=== PATIENT | female | born 1990 | race Caucasian/White ===

== ENCOUNTER 2025-01-28 15:27 | Outpatient (CLI) | payer SELFPAY ==
--- OUTSIDE RECORDS SUMMARY | 2024-04-29 18:00 | XMS_ITS | Continuity of Care Document ---
Author Organization [facility]. If a dditional information is needed, contact Health Information Management at [phone] Address [address] [place] [address] Phone Care Team Providers Care Warehouse Operations Associate Name Role Phone Unavailable Unavailable Unavailable Unavailable Unavailable Unavailable Unavailable Unavailable Unavailable Unavailable Unavailable Unavailable Unavailable Unavailable Unavailable Note Vidhya BushUxztf-25-Bif-2024 [place], [place] [address]Phone: Bvmptohl NotePatient Name: MICK ZIEGLEROB: 1990 Age: 33 Sex: FAcct: [id number] MR#: [id number] Status: DIS IN Patient Location: [facility].233-AOrdering Physician:Date of Admission:04/28/24 DATE OF PROCEDURE: 04/28/2024 PREDELIVERY DIAGNOSES: 1. Intrauterine at 41.1 weeks gestation. 2. Past dates . 3. 6 cm lower uterine segment fibroid. POSTDELIVERY DIAGNOSES: 1. Intrauterine at 41.1 weeks gestation. 2. Past dates . 3. 6 cm lower uterine segment fibroid. 4. Nuchal cord x1. PROCEDURE PERFORMED: Spontaneous vaginal delivery via Pitocin induction. DELIVERING PROVIDER: Rachelle Kee, Certified Nurse Personal Coach. BACKUP PROVIDER: Dr. Elizabeth Cuevas. : Infant was a viable female, name Danita Machado. Time of is 2141 on 04/28/2024. Weight is currently pending. Apgars 8 and 9. ANESTHESIA: Epidural. LACERATIONS: Lacerations sustained was a second-degree vaginal laceration, repaired with a 3- 0 Vicryl suture. She also had some small first-degree abrasions at approximately 8 o'clock and 2 o'clock of the hymenal ring, which were reapproximated and made hemostatic with a single stitch of a 3-0 chromic suture. ESTIMATED BLOOD LOSS: 200 mL. PLACENTA: Spontaneously delivered with 3-vessel cord noted. SPECIMENS: Cord blood. COMPLICATIONS: None. DELIVERY COURSE: The patient is a 33-year-old, pleasant, 1, para 1,Patient Name: JAVAN ZIEGLER Acct: [id number] Unit: [id number] Page 1 who presented to Labor and Delivery this morning to begin her induction, as she was seen in the office yesterday and given her status is postdates, was recommended to proceed with induction. She exhibited a category 1 tracing through the majority of her labor. She started at around 2 cm and was remained on Pitocin throughout the day. Around 5:30 p.m., she was around 3 cm, starting to contract somewhat more painfully, and then upon my exam around 7:30 this evening, she was found to be completely dilated. She had a bulging bag of water, which was ruptured via artificial rupture of membranes, yielded clear fluid. From that point, she requested an epidural for the benefit of pain relief. She labored down after that for approximately 30 minutes. At that point in time, she was placed in dorsal lithotomy position, prepped and draped, and prepared for delivery. She pushed for approximately 55 minutes. She eventually delivered the head atraumatically in the direct OA position, rotating to the POLO position. The 's body and shoulder then easily followed. Nuchal cord x1 was not able to be reduced prior to delivery of the body and was delivered immediately after the body was delivered. The infant was then handed off to the maternal abdomen and vigorous cry was noted. Cord was doubly clamped and cut after delay of approximately 45 seconds. Cord blood was obtained. Placenta was delivered via Schultze mechanism, intact with trailing membranes. Careful inspection of cervix, vagina, and perineum revealed the aforementioned lacerations, which were repaired in standard fashion. Good catholic and normal maternal anatomy was appreciated post- delivery. Both mom and baby are doing well at this time. Dictated by Rachelle Kee APRN for Elizabeth Cuevas MD JOB: [id number]<Electronically signed by PUSHPA Kee>04/29/24 1304<Electronically signed by Elizabeth Cuevas MD>05/04/24 1617Dictated By: Rachelle Kee APRN DictatedDate/Time: 04/28/242221Transcribed By: Superior Lowe InterfaceTranscribed Date/Time: 04/29/24 0255Technologist: Report ID: [id number] To:Patient Name: JAVAN ZIEGLER Acct: [id number] Unit: [id number] Page 2 [place] Jamari [address] [place], [place] [address]Phone: Isnzmkd and PhysicalPatient Name: MICK ZIEGLEROB: 1990 Age: 33 Sex: FAcct: [id number] MR#: [id number] Status: DIS IN Patient Location: [facility].[address] [place] [address] Physician:Date of Admission:04/28/24 ADM. DATE: 04/28/2024 ADMITTING DIAGNOSES: 1. Intrauterine at 41.1 weeks gestation. 2. Postdates. 3. History of 6 cm lower uterine segment fibroid. HISTORY: The patient is a 33-year-old , white, 1, para 0, with an intrauterine at 41.1 weeks gestation on the date of her scheduled induction of labor. She has had a relatively benign course at [facility] with exception of following a lower uterine segment anterior fibroid of about 6 cm in size. This has been followed in conjunction with [facility]. The patient is now postdates and I have recommended that we proceed with induction of labor for interest. They declined coming in tonight for induction and wished to proceed with induction tomorrow morning. She understands a small chance of failed induction, which could result in section. She understands that this risk may be increased somewhat due to the location of this uterine fibroid as well as on today's ultrasound baby appears to be in the OP position. PAST MEDICAL HISTORY: Negative. PAST SURGICAL HISTORY: Negative. ALLERGIES: NO KNOWN DRUG ALLERGIES. MEDICATIONS: None. SOCIAL HISTORY: Negative for tobacco, ethanol, or IV drug abuse. She has been almost 2 years. FAMILY MEDICAL HISTORY: Negative for carcinoma or any type of blood disorders. OBSTETRICAL AND GYNECOLOGICAL HISTORY: She is 1, para 0. PHYSICAL EXAMINATION: GENERAL: This is a 199-pound, 5 feet 5-inch tall (BMI of 33.13) pleasant white female, in nonacute distress. HEENT: Exam is within normal limits.Patient Name: JAVAN ZIEGLER Acct: [id number] Unit: [id number] Page 1 NECK: Supple without evidence of thyromegaly or adenopathy. LUNGS: Clear to auscultation. HEART: Regular rate and rhythm without murmurs, gallops, or rubs. ABDOMEN: Soft, nontender. No masses. No hepatosplenomegaly. No CVAT. No hernias. Uterus is gravid and nontender. EXTREMITIES: Without evidence of clubbing, cyanosis, or edema. NEUROLOGIC: The patient is grossly intact with 2+ DTRs of 0 clonus, and alert and oriented x3. PELVIC: Exam found external genitalia to be normal as was the vagina. Cervix was 1 cm dilated, 70% to 80% effaced, and -2 station. LABORATORY DATA: Finds maternal blood type A positive. Vitamin D was 38.1. TSH was 0.960. Hepatitis B surface antigen was negative. Hepatitis C was nonreactive. RPR nonreactive. Rubella titer is immune. Antibody screen negative. Varicella zoster is immune. HIV nonreactive. One hour Glucola was 105. GC and chlamydia cultures were both negative. Group B strep culture was negative. Pap smear normal. ASSESSMENT AND PLAN: A 33-year-old, , white, 1, para 0, with an intrauterine at 41.1 weeks gestation on the date of her scheduled admission for induction of labor secondary to postdates. We will re-evaluate her cervix in the morning to see if she is a good candidate for Pitocin induction versus cervical ripening with Cook catheter. I believe this maternal pelvis is adequate for this trial of labor. Estimated weight 3 days ago was 7 pounds 11 ounces, in the 49th percentile. Anticipate spontaneous vaginal delivery. JOB: [id number]<Electronically signed by Jamari Wood MD>05/03/24 175Dictated By: Jamari Wood MD DictatedDate/Time: 04/27/24 1650Transcribed By: [place] Global InterfaceTranscribed Date/Time: 04/27/24 2019Technologist: Report ID: [id number] To:Patient Name: JAVAN ZIEGLER Acct: [id number] Unit: [id number] Page 2 Problems care status Onset:29-Apr-2024 Vidhya Rachelle Status:Acute Post-term Onset:28-Apr-2024 Vidhya Hectorily Status:Acute Patient encounter status Onset:28-Apr-2024 Mason Johnson MD Status:Acute Allergies and Adverse Reactions No Known Allergies(Allergy) Onset: 28-Apr-2024 Medications Motrin;800 MG ORAL Every 8 H ours as Needed Start:29-Apr-2024 Comments:800 mg PO Q8H PRN As Needed for PAIN 1-3 MMR II Rtczliw_H-G-7113;0.5 ML .ONCE Quantity:1 Dial Rachelle Start:23-Rij-2609Kss:2023 Comments:Provider Administration Instructions:Give at discharge if Rubella Non-Immune orequivocal and not allergic. Adacel_ADAC0.5V;0.5 ML .ONCE Quantity:1 Dial Rachelle Start:20-Vaa-3084Ypb:2023 Comments:Provider Administration Instructions:Once if never received Td or wasadministered 2 or more years ago. 2 ML Rho(D) immune globulin, human 750 UNT/ML Prefilled Syringe [Rhophylac];300 MICROGRAM .ONCE Quantity:1 Dial Rachelle Start:51-Tsg-5499Vqb:2023 Comments:Provider Administration Instructions:?Administer Rhophylac RhO(D) Immune Globulin [Human 1 gbhu0546 IU (300mcg)], if Mom is RH negative and baby has RHpositive cord blood. May administer IV, if IV access isstill in place; if no IV access then administer IM, or if Complete Caplet_PREN1TAB23-AOM;1 TAB ORAL Daily Start:28-Apr-2024 Comments:1 tab PO DAILY Procedures Delivery of Products of Conception, Exte rnal Appro Date:28-Apr-2024 Repair Perineum Muscle, Open Approach Da te:28-Apr-2024 Introduction of Other Hormon e into Peripheral Vein, Percutaneous Approach Date:28-Apr-2024 Social History Smoking Status Never smoked tobacco Recorded: 28-Apr-2024 Results CBC w Automated Differential Ordered On: 024 29-Apr-2024 06:43 RDW Coefficient of Chocaojmy28.0%(Normal) Range:12%-14.8% Nucleated RBC relati ve auto0.0%(Normal) Range:0%-0.2% Nucleated RBC absolu te auto0.00K/uL(Normal) Range:0K/uL-0.01K/uL White Blood Count9.7K/uL(Normal) Range:4.8K/uL-10.8K/u L Red Blood Cell Count3.77{M/uL}(L ow) Range:4.1{M/uL}-5.3{M /uL} Hwsojmbezs07.0g/dL(Low) Range:12 .4g/dL-16.2g/ dL Jzbxzngaee47.9%(Low) Range:38.9% -44.7% Mean Corpuscular Ilmenm02.6fL(Normal) Range:81fL-96fL Mean Corpuscular Wksdcgxubb43.8pg(Normal) Range:27.5pg-33.4pg Mean Corpuscular Hgb Tyzmujf38.4g/dL(Normal) Range:32g/dL-36g/dL Granulocytes Absolute-Auto8.08K/uL(High) Range:1.4K/uL-7.7K/uL Immature Granulocyte s absolute0.03K/uL(Normal) Range:0K/uL-0.08K/uL Lymphocytes Absolute-Auto0.74K/uL(Low) Range:0.8K/uL-2.9K/uL Monocytes Absolute-Auto0.81K/uL(High) Range:0.2K/uL-0.8K/uL Eosinophils Absolute-Auto0.03K/uL(Normal) Range:0K/uL-0.3K/uL Basophils Absolute-Auto0.01K/uL(Normal) Range:0K/uL-0.04K/uL Platelet Edfqe105C/uL(Normal) Ra nge:153K/uL-361K/uL Mean Platelet Volume9.8fL(Normal ) Range:8.5fL-12.1fL Granulocytes Percent-Auto83.3%(Normal) Range:43%-83.7% Immature Granulocyte s percent0.3%(Normal) Range:0%-0.5% Lymphocytes Percent-Auto7.6%(Low ) Range:9.7%-44.3% Monocytes Percent-Auto8.4%(Mee l) Range:1.8%-12.7% Eosinophils Percent-Auto0.3%(Normal) Range:0%-6% Basophils Percent-Auto0.1%(Mee l) Range:0%-1% CBC w Automated Differential Ordered On: 024 28-Apr-2024 09:38 RDW Coefficient of Zjqwfqvnq08.1%(Normal) Range:12%-14.8% Nucleated RBC relati ve auto0.0%(Normal) Range:0%-0.2% Nucleated RBC absolu te auto0.00K/uL(Normal) Range:0K/uL-0.01K/uL Granulocytes Absolute-Auto5.38K/uL(Normal) Range:1.4K/uL-7.7K/uL Immature Granulocyte s absolute0.02K/uL(Normal) Range:0K/uL-0.08K/uL Lymphocytes Absolute-Auto0.59K/uL(Low) Range:0.8K/uL-2.9K/uL Monocytes Absolute-Auto0.50K/uL(Normal) Range:0.2K/uL-0.8K/uL Eosinophils Absolute-Auto0.06K/uL(Normal) Range:0K/uL-0.3K/uL Basophils Absolute-Auto0.01K/uL(Normal) Range:0K/uL-0.04K/uL Platelet Aweid092F/uL(Low) Range :153K/uL-361K/uL Mean Platelet Volume9.4fL(Normal ) Range:8.5fL-12.1fL Granulocytes Percent-Auto82.0%(Normal) Range:43%-83.7% Immature Granulocyte s percent0.3%(Normal) Range:0%-0.5% Lymphocytes Percent-Auto9.0%(Low ) Range:9.7%-44.3% Monocytes Percent-Auto7.6%(Mee l) Range:1.8%-12.7% Eosinophils Percent-Auto0.9%(Normal) Range:0%-6% Basophils Percent-Auto0.2%(Mee l) Range:0%-1% White Blood Count6.6K/uL(Normal) Range:4.8K/uL-10.8K/u L Red Blood Cell Count4.43{M/uL}(Normal) Range:4.1{M/uL}-5.3{M /uL} Ztswrbooek87.3g/dL(Normal) Range :12.4g/dL-16.2g/ dL Dnjnhldscg60.0%(Normal) Range:38 .9%-44.7% Mean Corpuscular Bnczzp38.6fL(Normal) Range:81fL-96fL Mean Corpuscular Rqwvzbpfvt27.3pg(Normal) Range:27.5pg-33.4pg Mean Corpuscular Hgb Edxomba90.9g/dL(Normal) Range:32g/dL-36g/dL Rapid Plasma Reagin Ab Ordered On:28-Apr-2024 12:06 Rapid Plasma Reagin AbNon-Reac tive Range:Non-Reactiv Vital Signs 29-Apr-2024 22:56 Temp36.5c O2 SAT94% Pulse98 Respiratory Rate14 BP Jrjaucfu278cs[Hg] BP Vtrmluoqt03tp[Hg] 29-Apr-2024 17:03 Temp36.7c O2 SAT95% Pulse95 Respiratory Rate16 BP Eufrmaxb249yh[Hg] BP Xinyuqdfk27vu[Hg] 29-Apr-2024 13:32 Temp36.8c O2 SAT98% Pulse95 Respiratory Rate16 BP Knvnsxoe353bd[Hg] BP Cugqyiusu56rl[Hg] 29-Apr-2024 09:23 Temp36.8c O2 SAT95% Pulse97 Respiratory Rate16 BP Lvpoaxqx132mu[Hg] BP Wngzxkfjz83uq[Hg] 29-Apr-2024 05:15 Temp36.9c O2 SAT96% Pulse78 Respiratory Rate12 BP Gimcslfd363uh[Hg] BP Ysnrcdiai80ha[Hg] 28-Apr-2024 09:01 Height5.25[ft_us] Snxnsp943.3033244kr Encounters Inpatient encounter Encounter Reason:IOL Encounter Diagnosis:807,807,SINGLE LIVE ,41 WEEKS GESTATION OF ,SECOND DEGREE PERINEAL LACERATION DURING DELIVERY,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 DATE: 04/28/2024 DISCH. DATE: 04/29/2024 ADMISSION DIAGNOSES: 1. Intrauterine at 41.1 weeks gestation. 2. Postdates . 3. A 6 cm lower uterine segment fibroid. DISCHARGE DIAGNOSES: 1. Intrauterine at 41.1 weeks gestation. 2. Postdates . 3. A 6 cm lower uterine segment fibroid. 4. Nuchal cord x1. PROCEDURE PERFORMED: Spontaneous vaginal delivery via Pitocin induction. DELIVERING PROVIDER: Rachelle Kee, Certified Nurse-proposal rep. INFANT: A viable female, named Danita Machado. Time of was 2142 hours on 04/28/2024. Weight was 7 pounds 11 ounces. Apgars were 8 and 9. She had an epidural for the benefit of pain relief. She sustained a second-degree vaginal laceration. Please see delivery note for further details regarding her delivery. DELIVERY COURSE: The patient is a 33-year-old 1, now para 1, who presented to Labor and Delivery yesterday morning for an induction of labor secondary to being past dates. She was 2 cm upon her arrival. She received Pitocin per protocol. She went on to progress to complete without any difficulty. She had a category 1 tracing through the most duration of her labor. Around 7:30 p.m. last night, she was found to be complete. At that point in time, she elected for an epidural for 2nd stage of labor, which was placed in without any difficulty. She had a 2nd stage of labor of approximately 1 hour. Her course has been unremarkable. She has been having minimal bleeding, tolerating a regular diet, and she has been attempting to breast feed. She has been afebrile. She is hemodynamically stable this morning. Today on day #1, she is requesting discharge after 24 hours post delivery. Should the be discharged as well, she will proceed with discharge later today.Patient Name: JAVAN ZIEGLER Acct: [id number] Unit: [id number] Page 1 DISCHARGE INSTRUCTIONS: Routine discharge instructions have been reviewed with the patient including pelvic rest for 6 weeks. To call for any fevers over 100.4, to call for any signs or symptoms of any type of infection including mastitis, and to call for any significant concerns for depression. FOLLOWUP: We will see in the office in approximately 6 weeks. I also offered her a 2-3 week visit for breast-feeding assistance if she so wishes. DISCHARGE MEDICATIONS: She is to continue her vitamins for duration of . For pain control, she wishes to just use gajo-reb-tyzvyhy ibuprofen or Tylenol. LABORATORY DATA: On admission, white blood cell count 6.6, hemoglobin of 14.3, hematocrit 41.0, platelet count of 143. day #1, white blood cell count of 9.7, hemoglobin 12.0, hematocrit of 34.9, and platelet count of 169. PHYSICAL EXAMINATION: VITAL SIGNS: Stable. She is afebrile this morning. Her temperature is 98.2. CONSTITUTIONAL: She is a well-developed and well-nourished female, in no acute distress. HEAD, EYES, EARS, NOSE AND THROAT: She is normocephalic and atraumatic. Moist mucous membranes. LUNGS: Clear to auscultation bilaterally. HEART: Regular rate and rhythm. No S3, no S4. No murmurs or gallops. ABDOMEN: Soft, nontender. Fundus firm at umbilicus -1. GENITOURINARY: Deferred. EXTREMITIES: No clubbing, no cyanosis, and no edema. Dictated by Rachelle Kee APRN for Elizabeth Cuevas MD JOB: [id number]<Electronically signed by DIRECTOR OF VITAL STATISTICS Rachelle Kee>04/30/24 3066<Electronically signed by Elizabeth Cuevas MD>05/07/24 0733Dictated By: Rachelle Kee APRN DictatedDate/Time: 04/29/24 1419Transcribed By: [place] Global InterfaceTranscribed Date/Time: 04/30/24 0354Technologist: Report ID: [id number] To: ZABRINA Astudilloatijasmina Name: JAVAN ZIEGLER Acct: [id number] Unit: [id number] Page 2 Plan of Treatment Future Tests Future scheduled test information is unavailable Pending Tests Pending diagnostic test information is unavailable Future Visits Future appointment information is unavailable Referrals to Other Providers Reason for Referral Referral Start Date Provider Provider Contact Information Provider Address Call [facility] on Tuesday to schedule a post visit with Rachelle Kee in 6 weeks. Rachelle Kee APRN Work Phone: [phone] [facility] [address] Future Procedures Procedure Name Ordered Date Scheduled Date Admission Status Order April 28, 2024 9:04 am April 28, 2024 9:05am Discharge Order April 29, 2024 2:11pm Apr 2:11pm Level of Care April 28, 2024 9:04am Apr 9:05am Consult Depalletizer Operator April 28 10:15pm April 28, 2024 10:15pm VTE Prophylaxis Status April 29, 2024 8:05 am April 29, 2024 8:05am Future Medications Future medication information is unavailable Patient Instructions After a Vaginal Depression Holds Expressing Your Milk Storing Expressed Milk Nutrition While : Caring for Yourself Taking a Sitz Bath Assessments Diagnosis Onset Date Resolution Status Encounter for induction of labor acute Post-dates acute care following vaginal delivery acute
--- OUTSIDE RECORDS SUMMARY | 2025-01-28 15:30 | XMS_ITS | Clinical Summary ---
Author Organization [facility] Address [address] [place] [address] Care Team Providers Care Captain Fishing Vessel Name Role Phone Unavailable Primary Care Provider Unavailabl e Social History Tobacco Use Types Packs/Day Years Used Date Smoking Tobacco: Never Assessed Comments Unknown Sex and Gender Information Value Date Recorded Sex Assigned at Not on file Legal Sex Female 9:29 AM EDT Gender Identity Not on file Sexual Orientation Not on file Plan of Treatment Health Maintenance Due Date Last Done Comments [facility]-Depression Screening 1991 [facility]-HIV Screening 1991 [facility]-Hepatitis C Screening 1991 [facility]-Infant/Child/Adol SDOH Screenings 1991 [facility]-Varicella Vaccines (1 of 2 - 13+ 2-dose series) 2004 HPV Vaccines (1 - 3-dose series) 2006 [facility]- SDOH Screenings 2009 [facility]-Adult SDOH Screenings 2009 [facility]-DTaP,Tdap,and Td Vaccine s (1 - Tdap) 2010 [facility]-Hepatitis B Vaccines (1 of 3 - 19+ 3-dose series) 2010 [facility]-Pap Smear 2012 [facility]-Cervical Cancer Screening 2021 [facility]-HPV/Cotest 2021 [facility]-BZVRF-54 Vaccine (1 - 20 24-25 season) 2024 [facility]-Influenza Vaccine (Seaso n Ended) 2025 [facility]-Zoster Vaccines (1 of 2) 2041 [facility]-HIB Vaccines Aged Out No longer e ligible based on patient's age to complete this topic [facility]-Hepatitis A Vaccines Aged Out No longer eligible based on patient's age to complete this topic [facility]-IPV Vaccines Aged Out No longer e ligible based on patient's age to complete this topic [facility]-Pneumococcal Vaccine: Pediatrics (0 to 5 Years) and At-Risk Patients (6 to 49 Years) Aged Out No long er eligible based on patient's age to complete this topic [facility]-Rotavirus Vaccines Aged Out No lo nger eligible based on patient's age to complete this topic
--- NOTE | 2025-01-28 15:31 | US_ITS ---
FINAL REPORT TECHNIQUE: Sonographic images of the thyroid were obtained. CLINICAL HISTORY: GOITER COMPARISON: None FINDINGS: THYROID ULTRASOUND The right thyroid gland measures 4.8 x 1.9 x 1.4 cm. The right thyroid gland is homogeneous. No dominant mass or nodule seen. The left thyroid gland measures 3.5 x 1.4 x 1.2 cm. The left thyroid gland is homogeneous. No dominant mass or nodule seen. IMPRESSION: No nodules identified. TI-RADS category 1. Recommend 12-month follow-up low-dose CT per TI-RADS criteria. Reviewed, Interpreted and Dictated by Stew Goode MD Transcribed by Autumn Leon Authenticated and [facility]
== END 2025-01-28 23:59 | disposition home or self-care (01) ==
LOC: RAD 15:28
PROVIDERS: PCP Emergency Medicine; Visit Provider Emergency Medicine
DX: E04.9 Nontoxic goiter, unspecified (principal)
CPT/HCPCS: 76536